=== PATIENT | male | born 1980 ===

== ENCOUNTER 2019-06-27 17:11 | Emergency (ER) | payer OTHER, SELFPAY ==
[2019-06-27] MEDS ORDERED: Proparacaine 0.5% Opth 15 ML BOT ONE (17:47)
[2019-06-27] MEDS ORDERED: Fluorescein Opthalmic Strip ONE (17:55)
== END 2019-06-27 19:20 ==
LOC: ERS 17:11 → EEVIPCON 17:11 → ERS 19:20
DX: H20.9 Unspecified iridocyclitis (principal); N18.6 End stage renal disease; Z99.2 Dependence on renal dialysis; Z79.899 Other long term (current) drug therapy; W50.0XXA Accidental hit or strike by another person, initial encounter
CPT/HCPCS: 99283

== ENCOUNTER 2024-07-27 16:34 | Inpatient (IN) | payer OTHER ==
[~2024-07-27 16:34] MED LIST: Iopamidol-370 76% 500 ML MDV (1 ML CHARGE) ONE
[2024-07-27] MEDS ORDERED: LevoFLOXacin 750 mg/D5W 150 ml Premix Bag ONE (17:26)
[2024-07-27 18:09] LABS: %Basophils 1.5 % (0.0-1.0); %Eosinophils 5.7 % (0.0-10.0); %Monocytes 7.4 % (0.0-10.0); %Neutrophils 67.2 % (42.0-75.0); Hematocrit 38.9 % (42.0-52.0); Mean Corpuscular HGB CONC 33.4 g/dL (32.0-36.0); Mean Corpuscular Hemoglobin 31.8 pg (27.0-31.0); Mean Corpuscular Volume 95.1 fL (78.0-98.0); Mean Platelet Volume 10.4 fL (7.4-10.4); Platelet Count 251 10x3/uL (130-400); RBC Distribution Width 13.8 % (11.5-14.5); Red Blood Cell (RBC) Count 4.09 mill/uL (4.70-6.10)
[2024-07-27 18:29] LABS: Troponin I 0.037 ng/mL (< 0.028)
[2024-07-27 18:38] LABS: CRP,High Sensitivity (Inhouse) 2.38 mg/dL (< or = 0.5)
[2024-07-27 18:39] LABS: ALT (SGPT) 11 U/L (8-55); AST (SGOT) 25 U/L (5-34); Albumin 3.4 g/dL (3.5-5.0); Alkaline Phosphatase 76 U/L (40-110); Anion Gap 20 mmol/L (10-20); BUN (Urea Nitrogen) 23 mg/dL (8.9-20.6); Bilirubin, Total 0.6 mg/dL (0.2-1.2); Calc. Creatinine Clearance 0 mL/min (70-130); Calcium 10.5 mg/dL (7.8-10.44); Carbon Dioxide 27 mmol/L (22-29); Chloride 96 mmol/L (98-107); Estimated GFR 9; Globulin 4.3 g/dL (2.4-3.5); Glucose 81 mg/dL (70-105); Potassium 4.1 mmol/L (3.5-5.1); Protein, Total 7.7 g/dL (6.0-8.3); Sodium 139 mmol/L (136-145)
[2024-07-27] MEDS ORDERED: Morphine 4 MG/ML VIAL ONE (19:19)
[2024-07-27] MEDS ORDERED: Ondansetron PF 4 MG/2 ML Vial IVP PRN ×2 (21:37→21:38)
[2024-07-27] MEDS ORDERED: Acetaminophen 325 MG TAB PO PRN (21:38)
[2024-07-27] MEDS ORDERED: Senokot S 8.6-50 MG TAB PO PRN (21:38)
[2024-07-27] MEDS ORDERED: Ondansetron ODT 4 MG TAB PO PRN (21:38)
[2024-07-27] MEDS ORDERED: Acetaminophen 650 MG Suppository PR PRN (21:38)
[2024-07-27] MEDS ORDERED: Bisacodyl 5 MG TAB PO PRN (21:38)
[2024-07-27] MEDS: Ampicillin/Sulbactam 3 GM in Sodium Chloride 0.9% 100 ML IVPB SCH (22:55)
[2024-07-27] MEDS: Pantoprazole 40 MG VIAL IVP SCH (22:55)
[2024-07-28] MEDS: hydrALAZINE 20 MG/ML VIAL SLOW IVP PRN (01:09)
[2024-07-28] MEDS: Morphine 2 MG/ML VIAL SLOW IVP PRN (01:10)
[2024-07-28 06:36] LABS: %Basophils 1.6 % (0.0-1.0); %Eosinophils 7.2 % (0.0-10.0); %Lymphocytes 26.3 % (21.0-51.0); %Neutrophils 53.7 % (42.0-75.0); Hematocrit 37.6 % (42.0-52.0); Hemoglobin 12.6 g/dL (14.0-18.0); Mean Corpuscular HGB CONC 33.5 g/dL (32.0-36.0); Mean Corpuscular Hemoglobin 31.8 pg (27.0-31.0); Mean Corpuscular Volume 94.9 fL (78.0-98.0); Mean Platelet Volume 10.6 fL (7.4-10.4); Platelet Count 233 10x3/uL (130-400); RBC Distribution Width 13.9 % (11.5-14.5); Red Blood Cell (RBC) Count 3.96 mill/uL (4.70-6.10)
[2024-07-28 07:09] LABS: Anion Gap 21 mmol/L (10-20); BUN (Urea Nitrogen) 28 mg/dL (8.9-20.6); Calc. Creatinine Clearance 11 mL/min (70-130); Calcium 10.7 mg/dL (7.8-10.44); Carbon Dioxide 28 mmol/L (22-29); Chloride 99 mmol/L (98-107); Estimated GFR 7; Glucose 68 mg/dL (70-105); Potassium 4.6 mmol/L (3.5-5.1); Sodium 143 mmol/L (136-145)
[2024-07-28] MEDS: Cinacalcet HCl 30 MG TAB PO SCH (07:56)
[2024-07-28] MEDS: Sevelamer Carbonate 800 MG TAB PO SCH (07:56)
[2024-07-28] MEDS: Pantoprazole 40 MG VIAL IVP SCH (09:57)
[2024-07-28] MEDS: Amino Acids 4.25 %/Dextrose 5% 1,000 ML IV SCH (17:53)
[2024-07-29 06:36] LABS: HBsAg Index 0.32 S/CO (0-0.99); Hep B Core Total Ab NONREACTIVE (NonReactive); Hep B Core Total Index 0.08 S/CO (0-0.79); Hep B Surf AB REACTIVE (NonReactive); Hep B Surf Ag NONREACTIVE S/CO (NonReactive); Hep C IgG Ab NONREACTIVE S/CO (NonReactive); Hep C Index 0.06 S/CO (0-0.79)
[2024-07-29] MEDS ORDERED: Heparin 10,000 UNITS/ 10 ML VIAL ONE (09:17)
[2024-07-29] MEDS ORDERED: fentaNYL 50 mcg/mL 1 mL Vial ONE (10:12)
[2024-07-29] MEDS ORDERED: PROPOFOL 40 ML ONE (10:12)
[2024-07-29] MEDS ORDERED: Lidocaine 1% PF 5 ML VIAL ONE (10:12)
[2024-07-29 14:53] VITALS: BMI 23.2
[2024-07-30 06:02] LABS: #Basophils 0.06 10x3/uL (0.0-0.2); %Basophils 1.1 % (0.0-1.0); %Eosinophils 9.2 % (0.0-10.0); %Lymphocytes 18.3 % (21.0-51.0); %Monocytes 9.1 % (0.0-10.0); %Neutrophils 62.1 % (42.0-75.0); Hematocrit 37.2 % (42.0-52.0); Hemoglobin 12.5 g/dL (14.0-18.0); Mean Corpuscular HGB CONC 33.6 g/dL (32.0-36.0); Mean Corpuscular Volume 95.1 fL (78.0-98.0); Mean Platelet Volume 10.5 fL (7.4-10.4); Platelet Count 203 10x3/uL (130-400); Red Blood Cell (RBC) Count 3.91 mill/uL (4.70-6.10)
[2024-07-30 06:49] LABS: Anion Gap 16 mmol/L (10-20); BUN (Urea Nitrogen) 25 mg/dL (8.9-20.6); Calc. Creatinine Clearance 14 mL/min (70-130); Calcium 10.2 mg/dL (7.8-10.44); Carbon Dioxide 27 mmol/L (22-29); Chloride 100 mmol/L (98-107); Estimated GFR 10; Glucose 84 mg/dL (70-105); Magnesium 2.2 mg/dL (1.6-2.6); Potassium 3.6 mmol/L (3.5-5.1); Sodium 139 mmol/L (136-145)
[2024-07-30] MEDS: Cholecalciferol (Vitamin D3) 400 UNITS TAB PO SCH (08:25)
[2024-07-30] MEDS: Folic Acid 0.4 MG in Admixture Fee 1 EACH SC SCH (08:27)
[2024-07-30] MEDS ORDERED: Folic Acid 5 MG/ML MDV SC SCH (09:00)
[2024-07-30 10:39] VITALS: BMI 23.1
[2024-07-30] MEDS: Amino Acids 4.25 %/Dextrose 5% 2,000 ML IV SCH (22:51)
[2024-07-31 01:30] VITALS: BP 147/81; TEMP 97.9
== END 2024-07-31 03:52 | disposition short-term general hospital (02) | DRG 177 ==
LOC: ERS 16:34 → T4-B 21:02 → EEVIPCON 21:02 → OBSVTOIN 07-28 10:42
PROVIDERS: ADMIT Family Medicine; ATTEND Internal Medicine
PROC: 0D758ZZ Dilation of Esophagus, Via Natural or Artificial Opening Endoscopic (ICD-10-PCS; principal; 2024-07-29)
PROC: 0DB58ZX Excision of Esophagus, Via Natural or Artificial Opening Endoscopic, Diagnostic (ICD-10-PCS; 2024-07-29)
PROC: 0DB68ZX Excision of Stomach, Via Natural or Artificial Opening Endoscopic, Diagnostic (ICD-10-PCS; 2024-07-29)
DX: J69.0 Pneumonitis due to inhalation of food and vomit (principal); N18.6 End stage renal disease; I12.0 Hypertensive chronic kidney disease with stage 5 chronic kidney disease or end stage renal disease; R49.0 Dysphonia; K20.90 Esophagitis, unspecified without bleeding; Z98.890 Other specified postprocedural states; E21.3 Hyperparathyroidism, unspecified; Z79.82 Long term (current) use of aspirin; Z79.899 Other long term (current) drug therapy; Z91.041 Radiographic dye allergy status; Z88.8 Allergy status to other drugs, medicaments and biological substances
CPT/HCPCS: 36415; 36416; 70491; 70551; 71045; 71275; 72141; 74230; 80048; 80053; 82306; 83519; 83735; 84134; 84443; 84484; 85025; 86141; 86704; 86706; 86803; 87340; 88305; 88342; 90935; 96374; 96375; 96376; G0257; G0378; J0295; J0360; J1644; J1956; J2272; J2470; J2704; J3010; J3411; Q9967